=== PATIENT | male | born 1995 | race Two or more races ===

== ENCOUNTER 2023-10-29 23:03 | Emergency (ER) | payer OTHER ==
[~2023-10-29] VITALS: Ht 157.5 cm; Wt 54.4 kg
[2023-10-30] MEDS ORDERED: OxyCODONE HCL/APAP UD (PERCOCET) PO STA (03:54)
[2023-10-30] MEDS ORDERED: KETOROLAC TROMETHAMINE 60 MG VIAL IM STA (03:54)
== END 2023-10-30 07:03 | disposition home or self-care (01) ==
LOC: ER 23:03
DX: S92.355A Nondisplaced fracture of fifth metatarsal bone, left foot, initial encounter for closed fracture (principal); S93.402A Sprain of unspecified ligament of left ankle, initial encounter; W19.XXXA Unspecified fall, initial encounter; Y93.89 Activity, other specified; Y92.018 Other place in single-family (private) house as the place of occurrence of the external cause; Y99.9 Unspecified external cause status